=== PATIENT | female | born 1950 | race Caucasian/White ===

== ENCOUNTER 2017-07-08 15:39 | Inpatient (IN) | payer MEDICARE, OTHER ==
[2017-07-08 22:33] LABS: #Eosinphils 0.2 thou/uL (0.0-0.7); #Lymphocytes 0.9 thou/uL (1.20-3.40); #Monocytes 0.8 thou/uL (0.11-0.59); %Basophils 0.5 % (0.0-1.0); %Eosinophils 2.3 % (0.0-10.0); %Lymphocytes 11.4 % (21.0-51.0); %Monocytes 10.3 % (0.0-10.0); %Neutrophils 75.5 % (42.0-75.0); Hemoglobin 11.6 g/dL (12.0-16.0); Mean Corpuscular HGB CONC 33.1 g/dL (32.0-36.0); Mean Corpuscular Hemoglobin 31.6 pg (27.0-31.0); Mean Corpuscular Volume 95.6 fl (81.0-99.0); Mean Platelet Volume 8.2 fL (7.4-10.4); Platelet Count 255 thou/uL (130-400); RBC Distribution Width 12.4 % (11.5-14.5); Red Blood Cell (RBC) Count 3.68 mill/uL (4.20-5.40)
--- NOTE | 2017-07-08 23:04 | HP ---
DATE OF ADMISSION: 07/08/2017 CHIEF COMPLAINT: Abdominal pain. HISTORY OF PRESENT ILLNESS: This is a 67-year-old female who presents with a 2-week history of abdom inal pain that she describes as severe in the left abdomen associated with nausea, anorexia, abdomina l bloating. She had an outpatient CT scan today ordered by Dr. Velarde. They called her back, went to the emergency room based on the findings of the CT scan. CT scan shows findings concerning for perit onitis and there was some concern for a perforated gastric ulcer. The patient notes a history of ser ositis, previously treated at the [facility] with a small bowel resection. She has had multiple abd ominal operations. States she has 19 inches of small intestine that has been removed secondary to th is. She states that she will have inflammation of the small intestine that has always necessitated a small bowel resection. This time, the symptoms have been shorter in length, but more severe, althou gh she feels comfortable now. She sees Dr. Velarde as an outpatient and takes Imuran and Remicade. No other steroids recently. She has been taking some tramadol and occasional ibuprofen for this pain as well as for knee replacement post-surgical pain that she had back in December but not a significant bahman y amount. She does not take a daily antacid. PAST MEDICAL HISTORY: Otherwise, hypertension. PAST SURGICAL HISTORY: As above. MEDICATIONS TAKEN DAILY: Include azathioprine, flecainide, lisinopril, Remicade. ALLERGIES: She denies. SOCIAL HISTORY: No smoking, alcohol, or other drugs. REVIEW OF SYSTEMS: Ten system review of systems otherwise negative unless described above. PHYSICAL EXAMINATION: VITAL SIGNS: Blood pressure 124/83, her pulse is 87, respirations 12. She is afebrile. HEENT: Sclerae are anicteric. Oropharynx is clear. NECK: No lymphadenopathy. CHEST: Clear. HEART: Regular rate and rhythm. ABDOMEN: Soft, diffuse, mildly tender, left-sided tenderness with guarding but no rebound, no perito vlad signs. Well-healed midline incision without hernia. LABORATORY DATA: White cell count is 8, hemoglobin 11, platelet count is 255. Sodium 138, potassium 4.2, creatinine 0.73. Liver function tests normal. A CT scan reveals severe inflammatory change greater curve of the stomach into the posterior lesser s ac and around the tail of the pancreas and there are some small bowel involvement and colon involveme nt in the left upper quadrant. There is no free air. There is some free fluid in the pelvis and agustin ng the right pericolic gutter. ASSESSMENT: 1. History of serositis requiring multiple abdominal operations for similar symptoms and presentatio n. She is not septic or toxic appearing and with normal pulses, normal infection count, and fairly b enign exam given her CT scan findings. 2. Hypertension. PLAN: We will admit to the hospital for broad-spectrum antibiotics, IV fluid resuscitation, IV Fred nix. We have a GI see her in the morning. Further treatment depends on her clinical course. Stacey morrison, if her pain increases or if she becomes unstable, she will go to the operating room.
[2017-07-09] MEDS ORDERED: Sodium Chloride 0.9% 1,000 ML IV SCH (00:46)
[2017-07-09] MEDS ORDERED: Dextrose 50% Abboject 50 ML SYRINGE SLOW IVP PRN (00:46)
[2017-07-09] MEDS ORDERED: hydrALAZINE 20 MG/ML VIAL SLOW IVP PRN (00:46)
[2017-07-09] MEDS ORDERED: Promethazine HCl 25 MG/ML VIAL IM PRN (00:46)
[2017-07-09] MEDS ORDERED: Ondansetron ODT 4 MG TAB PO PRN (00:46)
[2017-07-09] MEDS ORDERED: Morphine 4 MG/ML Carpuject SLOW IVP PRN (00:46)
[2017-07-09] MEDS ORDERED: Dextrose 5% in Water 1,000 ML IV PRN (00:46)
[2017-07-09] MEDS ORDERED: Pantoprazole 40 MG VIAL IVP SCH (01:15)
[2017-07-09] MEDS: D5 1/2 NS w/20 mEq KCL 1,000 ML IV SCH ×4 (01:22→21:00)
[2017-07-09] MEDS: Morphine 4 MG/ML Carpuject IVP PRN ×5 (01:25→18:46)
[2017-07-09] MEDS: Piperacillin/Tazobactam 3.375 GM in Sodium Chloride 0.9% 100 ML IVPB SCH ×4 (01:53→20:59)
[2017-07-09 02:01] VITALS: BMI 25.7
[2017-07-09 02:16] LABS: ALT (SGPT) 14 U/L (8-55); AST (SGOT) 21 U/L (5-34); Albumin 3.2 g/dL (3.4-4.8); Alkaline Phosphatase 81 U/L (40-150); Anion Gap 10 mmol/L (10-20); BUN (Urea Nitrogen) 5 mg/dL (9.8-20.1); Bilirubin, Total 0.7 mg/dL (0.2-1.2); Calc. Creatinine Clearance 98 mL/min (70-130); Calcium 8.8 mg/dL (7.8-10.44); Carbon Dioxide 28 mmol/L (23-31); Chloride 104 mmol/L (98-107); Estimated GFR-MDRD 82; Globulin 2.7 g/dL (2.4-3.5); Glucose 109 mg/dL (80-115); Lipase 11 U/L (8-78); Potassium 3.6 mmol/L (3.5-5.1); Protein, Total 5.9 g/dL (6.0-8.3); Sodium 138 mmol/L (136-145)
[2017-07-09 04:09] LABS: #Eosinphils 0.2 thou/uL (0.0-0.7); #Lymphocytes 0.7 thou/uL (1.20-3.40); #Monocytes 0.7 thou/uL (0.11-0.59); #Neutrophils 4.7 thou/uL (1.40-6.50); %Basophils 0.3 % (0.0-1.0); %Lymphocytes 11.5 % (21.0-51.0); %Monocytes 11.3 % (0.0-10.0); %Neutrophils 73.9 % (42.0-75.0); Hemoglobin 11.1 g/dL (12.0-16.0); Mean Corpuscular HGB CONC 32.5 g/dL (32.0-36.0); Mean Corpuscular Hemoglobin 31.7 pg (27.0-31.0); Mean Corpuscular Volume 97.6 fl (81.0-99.0); Mean Platelet Volume 7.7 fL (7.4-10.4); Platelet Count 221 thou/uL (130-400); RBC Distribution Width 12.4 % (11.5-14.5); Red Blood Cell (RBC) Count 3.52 mill/uL (4.20-5.40); White Blood Cell (WBC) Count 6.4 thou/uL (4.8-10.8)
[2017-07-09 04:26] LABS: Anion Gap 11 mmol/L (10-20); BUN (Urea Nitrogen) 4 mg/dL (9.8-20.1); Calc. Creatinine Clearance 96 mL/min (70-130); Calcium 8.5 mg/dL (7.8-10.44); Carbon Dioxide 23 mmol/L (23-31); Chloride 108 mmol/L (98-107); Estimated GFR-MDRD 81; Glucose 125 mg/dL (80-115); Potassium 3.8 mmol/L (3.5-5.1); Sodium 138 mmol/L (136-145)
[2017-07-09] MEDS: Ondansetron HCl/PF 4 MG/2 ML Vial IVP PRN (11:20)
--- NOTE | 2017-07-09 12:17 | PRG ---
DATE OF SERVICE: 07/09/2017 SUBJECTIVE: Ms. Chen feels about the same today. She still complains of some left-sided abdominal pain, mostly when she moves. No significant nausea or vomiting. She is urinating without difficult y. PHYSICAL EXAMINATION: VITAL SIGNS: Pulse is 68, respirations 16, blood pressure is 115/68. She is afebrile. ABDOMEN: Soft, it is mildly distended left upper quadrant, guarding, no peritoneal signs, no rigid a bdomen. LABORATORY DATA: White cell count is 6, hemoglobin 11, platelet count is 221. Sodium is 138, potass ium 3.8, creatinine 0.72. ASSESSMENT: Acute exacerbation of abdominal serositis. PLAN: Continue supportive care including Zosyn for antibiotics. Discussed with Dr. Arauz. He will see her. She is on long-term Remicade for this. She may need treatment with steroids. If not impro ving clinically, she may need surgery.
[2017-07-09] MEDS ORDERED: Propofol 200 MG/20 ML VIAL ONE (14:27)
[2017-07-09] MEDS ORDERED: Ondansetron HCl/PF 4 MG/2 ML Vial IVP PRN (15:31)
--- NOTE | 2017-07-09 15:53 | OP ---
DATE OF PROCEDURE: 07/09/2017 INDICATION: Left upper quadrant abdominal pain, possible gastric perforation. PROCEDURE PERFORMED: Esophagogastroduodenoscopy (diagnostic). DESCRIPTION OF PROCEDURE: After the risks and benefits of the procedure were explained to the patient including risks of infection, bleeding, perforation, reaction to anesthesia and/or pain. Informed consent was obtained. She was then taken to the endoscopy suite where deep sedation was administered via propofol and anesthesia support. The standard gastroscope was then advanced into the mouth with intubation of the esophagus, stomach and proximal small bowel with the finding of listed below. The patient tolerated the procedure well with no immediate perioperative complications. FINDINGS: Esophagus: Normal appearing mucosa was seen in the proximal, mid and distal esophagus. There was no evidence of esophagitis, erosions, ulcerations, or mass lesions. Both the diaphragmatic pinch and GE junction were well seen at approximately 45 cm past the incisors. Stomach: Normal mucosa was seen in the cardia, fundus, body, antrum and incisura within a J-shaped stomach. There was no evidence of erosions, ulcerations, perforation or mass lesions. No abnormalities were seen on gastric retroflexion. Duodenum: Normal appearing mucosa was seen in the duodenal bulb, as well as the second portion of the duodenum. There was no evidence of erosions, ulcerations, or mass lesions. IMPRESSION: 1. Normal upper endoscopy. 2. No gastric perforation or ulcerations seen during today's examination. RECOMMENDATIONS: 1. Follow with primary inpatient team. 2. Can continue patient on PPI 40 mg daily for acid reflux. 3. We would consider discontinuation of antibiotics given the lack of evidence for gastric perforation. 4. We would highly consider placing the patient on steroids daily for recurrence of serositis contributing to left upper quadrant abdominal pain and findings seen on GI imaging. [facility]
--- NOTE | 2017-07-09 16:56 | CON ---
DATE OF CONSULTATION: 07/09/2017 REASON FOR CONSULTATION: Left upper quadrant abdominal pain, abnormal GI imaging. CONSULTING PHYSICIAN: Dr. Byron Byrd. HISTORY OF PRESENT ILLNESS: The patient is a 67-year-old female with past medical history of hypertension, essential tremor and chronic serositis that presents with a 2-week history of abdominal pain. She states that she was in her usual state of health until approximately 2 weeks ago when she had the progressive worsening of left upper quadrant abdominal pain, characterized as constant, sharp/stabbing type pain, severity 6-7/10, and nonradiating. The pain was worse with movement/physical activity and intermittently with eating; alleviated only with pain medications. The pain medication she has been taking at home included tramadol as well as ibuprofen 600 mg every 1-2 days. However, during this time, she also endorses approximately 2-3 solid bowel movements per day with no difficulty with defecation. With the worsening of her pain, she was actually seen by Dr. Joy, her [employer] yesterday, who ordered routine labs as well as imaging. The imaging was concerning for possible perforated gastric ulcer that prompted her admission to [facility]. While in the hospital , she continues to have left upper quadrant abdominal pain, but has not been exhibiting any additional symptoms including nausea, vomiting, fevers, chills, shortness of breath, odynophagia, dysphagia, dizziness, syncope, or lower extremity edema. Of note, she has a history of chronic serositis that has been present for many years. She was currently seeing Dr. Velarde as an outpatient, taking both azathioprine and Remicade as part of immunosuppressive therapy related to her serositis. While on this regimen, she was under fairly good control, but more recently had been having episodes of increased diarrhea closer to the end of when she would receive her next infusion of Remicade. Also, of note, she was seen at the [facility] for this chronic serositis with the resection of approximately 8 inches of small bowel, which did not correct her symptoms. REVIEW OF SYSTEMS: A 12-category review of systems was obtained with all responsive negative except for the pertinent positives as listed in the HPI. PAST MEDICAL HISTORY: Per HPI. PAST SURGICAL HISTORY: Small-bowel resection x2. FAMILY HISTORY: Colon cancer (multiple aunts and uncles). SOCIAL HISTORY: Quit smoking 2 weeks ago. Drinks approximately 1-2 drinks per month. Denies any illicit drug use. OUTPATIENT MEDICATIONS: Azathioprine, Remicade, lisinopril, and flecainide. ALLERGIES: No known drug allergies. PHYSICAL EXAMINATION: VITAL SIGNS: Temperature 97.7, pulse 61, blood pressure 106/62, respiratory rate 16, and satting 96% on room air. GENERAL: Patient is in no acute distress, although does exhibit some grimacing upon moving in the bed, alert and oriented x4. HEENT: Normocephalic, atraumatic. NECK: Supple. No JVD noted. CARDIOVASCULAR: Regular rate and rhythm with no discernible murmurs, gallops, or rubs. RESPIRATORY: Clear to auscultation bilaterally with no discernible wheezes or rales. ABDOMEN: Soft, normoactive bowel sounds. Nondistended. Increased tenderness to palpation in the periumbilical left upper quadrant and left lower quadrant with guarding, but no rebound tenderness. A well healed midline incision without hernia was also noted. EXTREMITIES: No cyanosis, clubbing, or edema. LABORATORY DATA: CBC with a white blood cell count of 6.4, hemoglobin 11.1, hematocrit 34.3, platelets 221. Chemistry with a sodium of 138, potassium 3.8, chloride 108, CO2 of 23, BUN 4, creatinine 0.72, glucose 125, AST 21, ALT 14, alkaline phosphatase 81, total bilirubin 0.7, lipase 11. IMAGING STUDIES: CT scan obtained yesterday revealed severe inflammatory change along the greater curve of the stomach and into the posterior lesser sac with some small bowel and colon involvement in the left upper quadrant. No evidence of free air; however, there was a large amount of free fluid in the pelvis and along the right paracolic gutter. ASSESSMENT AND PLAN: The patient is a 67-year-old female with past medical history of hypertension, essential tremor, and chronic serositis presenting with left upper quadrant abdominal pain. Left upper quadrant abdominal pain Patient is presenting with worsening abdominal pain over the last 2 weeks, characterized as sharp stabbing pain within the left upper quadrant that is exacerbated by movements and only alleviated with medication administration. Upon seeing her [employer] doctor yesterday, CT scan was obtained showing severe inflammatory change along the greater curvature of the stomach as well as involvement of the small and large bowel, concerning for peptic ulcer or gastric perforation. However, she does not exhibit any elevated white count. She is not tachycardic, hypotensive, nor if there free air present on the CT scan that would lend itself towards a diagnosis of gastric perforation. At this time, the etiology of her left upper quadrant abdominal pain is most likely due to her chronic serositis with diminishing returns from azathioprine and Remicade administration in the recent past as evidenced by increased diarrhea type stools prior to her infusion of Remicade. However, peptic ulcer disease cannot be ruled out at this time and she would benefit from endoscopic evaluation. RECOMMENDATIONS: 1. We will plan for EGD today for intraluminal evaluation for possible peptic ulcer and/or perforation. 2. We would continue PPI 40 mg twice daily for possible peptic ulcer disease. 3. Continue with broad spectrum antibiotics given possibility for infection and perforation. 4. I also agree with the administration of IV fluids, given the likelihood of perforation. 5. If the upper endoscopy is negative, we would strongly consider diagnosis of serositis and administration of steroids as part of immunosuppressant therapy to reachieve remission. 6. Pain control per primary team. MTDD
[2017-07-09] MEDS: Pantoprazole 40 MG VIAL IVP SCH (21:00)
[2017-07-10] MEDS: Piperacillin/Tazobactam 3.375 GM in Sodium Chloride 0.9% 100 ML IVPB SCH ×4 (02:47→20:42)
[2017-07-10] MEDS: Morphine 4 MG/ML Carpuject IVP PRN ×5 (03:02→20:42)
[2017-07-10 04:07] LABS: #Eosinphils 0.3 thou/uL (0.0-0.7); #Lymphocytes 0.7 thou/uL (1.20-3.40); #Monocytes 0.6 thou/uL (0.11-0.59); #Neutrophils 3.9 thou/uL (1.40-6.50); %Basophils 0.6 % (0.0-1.0); %Eosinophils 5.2 % (0.0-10.0); %Lymphocytes 12.8 % (21.0-51.0); %Neutrophils 70.4 % (42.0-75.0); Hemoglobin 10.4 g/dL (12.0-16.0); Mean Corpuscular HGB CONC 32.3 g/dL (32.0-36.0); Mean Corpuscular Hemoglobin 31.5 pg (27.0-31.0); Mean Corpuscular Volume 97.5 fl (81.0-99.0); Mean Platelet Volume 7.9 fL (7.4-10.4); Platelet Count 246 thou/uL (130-400); RBC Distribution Width 12.6 % (11.5-14.5); Red Blood Cell (RBC) Count 3.31 mill/uL (4.20-5.40); White Blood Cell (WBC) Count 5.5 thou/uL (4.8-10.8)
[2017-07-10 04:23] LABS: Anion Gap 10 mmol/L (10-20); BUN (Urea Nitrogen) Less than 4 mg/dL (9.8-20.1); Calc. Creatinine Clearance 90 mL/min (70-130); Calcium 8.3 mg/dL (7.8-10.44); Carbon Dioxide 26 mmol/L (23-31); Chloride 108 mmol/L (98-107); Estimated GFR-MDRD 75; Glucose 105 mg/dL (80-115); Potassium 4.1 mmol/L (3.5-5.1); Sodium 140 mmol/L (136-145)
[2017-07-10] MEDS: D5 1/2 NS w/20 mEq KCL 1,000 ML IV SCH ×2 (07:12→18:41)
[2017-07-10] MEDS ORDERED: predniSONE 20 MG TAB PO SCH (08:00)
[2017-07-10] MEDS ORDERED: Prevnar 13-Val Conj/PF 0.5 ML SYRINGE IM ONE (09:00)
--- NOTE | 2017-07-10 09:48 | PDOC.GSPN ---
Surgery Progress Note: Subj - Subjective Narrative: Still complaining of pain. No nausea with clear liquids. Pain mostly left upper quadrant Surgery Progress Note: Obj - Vital signs Vital signs: Vital Signs - Most Recent Temp Pulse Resp BP Pulse Ox 98.2 F 65 16 125/71 97 07/10/17 07:50 07/10/17 07:50 07/10/17 07:50 07/10/17 07:50 07/10/17 07:50 - Physical Exam General: no distress Respiratory: clear to auscultation Abdomen: soft, tender (in the left upper quadrant) Surgery Progress Note: Results - Labs Result Diagrams: 07/10/17 03:13 07/10/17 03:13 Lab results: Laboratory Results WBC 5.5 thou/uL (4.8-10.8) 07/10/17 03:13 RBC 3.31 mill/uL (4.20-5.40) L 07/10/17 03:13 Hgb 10.4 g/dL (12.0-16.0) L 07/10/17 03:13 Hct 32.3 % (36.0-47.0) L 07/10/17 03:13 MCV 97.5 fl (81.0-99.0) 07/10/17 03:13 MCH 31.5 pg (27.0-31.0) H 07/10/17 03:13 MCHC 32.3 g/dL (32.0-36.0) 07/10/17 03:13 RDW 12.6 % (11.5-14.5) 07/10/17 03:13 Plt Count 246 thou/uL (130-400) 07/10/17 03:13 MPV 7.9 fL (7.4-10.4) 07/10/17 03:13 Neutrophils % 70.4 % (42.0-75.0) 07/10/17 03:13 Lymphocytes % 12.8 % (21.0-51.0) L 07/10/17 03:13 Monocytes % 11.0 % (0.0-10.0) H 07/10/17 03:13 Eosinophils % 5.2 % (0.0-10.0) 07/10/17 03:13 Basophils % 0.6 % (0.0-1.0) 07/10/17 03:13 Neutrophils # 3.9 thou/uL (1.40-6.50) 07/10/17 03:13 Lymphocytes # 0.7 thou/uL (1.20-3.40) L 07/10/17 03:13 Monocytes # 0.6 thou/uL (0.11-0.59) H 07/10/17 03:13 Eosinophils # 0.3 thou/uL (0.0-0.7) 07/10/17 03:13 Basophils # 0.0 thou/uL (0.0-0.2) 07/10/17 03:13 Sodium 140 mmol/L (136-145) 07/10/17 03:13 Potassium 4.1 mmol/L (3.5-5.1) 07/10/17 03:13 Chloride 108 mmol/L (98-107) H 07/10/17 03:13 Carbon Dioxide 26 mmol/L (23-31) 07/10/17 03:13 Anion Gap 10 mmol/L (10-20) 07/10/17 03:13 BUN Less than 4 mg/dL (9.8-20.1) L 07/10/17 03:13 Creatinine 0.77 mg/dL (0.6-1.1) 07/10/17 03:13 Estimated GFR (MDRD) 75 07/10/17 03:13 Glucose 105 mg/dL (80-115) 07/10/17 03:13 Calcium 8.3 mg/dL (7.8-10.44) 07/10/17 03:13 Total Bilirubin 0.7 mg/dL (0.2-1.2) 07/09/17 01:22 AST 21 U/L (5-34) 07/09/17 01:22 ALT 14 U/L (8-55) 07/09/17 01:22 Alkaline Phosphatase 81 U/L (40-150) 07/09/17 01:22 Serum Total Protein 5.9 g/dL (6.0-8.3) L 07/09/17 01:22 Albumin 3.2 g/dL (3.4-4.8) L 07/09/17 01:22 Globulin 2.7 g/dL (2.4-3.5) 07/09/17 01:22 Albumin/Globulin Ratio 1.2 g/dL (1.2-2.2) 07/09/17 01:22 Lipase 11 U/L (8-78) 07/09/17 01:22 Blood Type O POSITIVE 07/08/17 22:25 Antibody Screen NEGATIVE 07/08/17 22:25 Surgery Progress Note: A/P - Problem (1) Serositis Current Visit: Yes Code(s): K65.8 - OTHER PERITONITIS Status: Acute Assessment and Plan: Exacerbation: Try IV steroids. She has already had 19 inches of small bowel resection by her report. If not improving on IV steroids next step would be TPN and bowel rest
[2017-07-10] MEDS: Pantoprazole 40 MG VIAL IVP SCH (20:40)
--- NOTE | 2017-07-10 21:47 | PRG ---
DATE OF SERVICE: 07/10/2017 SUBJECTIVE: The patient continues to have increased left upper quadrant abdominal pain that is now s tarting to radiate into the periumbilical region. This pain is unchanged in character or severity an d she is frustrated with her current clinical condition and chronicity of these flares of abdominal p ain. Currently, she denies any fevers, chills, shortness of breath, GI bleeding, diarrhea or constip ation. OBJECTIVE: VITAL SIGNS: Temperature 98.7, pulse 72, blood pressure 142/70, respiratory rate 20, satting 95% on room air. GENERAL: The patient in relatively no distress. Alert and oriented x4. CARDIOVASCULAR: Regular rate and rhythm with no discernible murmurs, gallops, or rubs. RESPIRATORY: Clear to auscultation bilaterally with no discernible wheezes or rales. ABDOMEN: Normoactive bowel sounds, soft, nondistended. Increased tenderness to palpation in the per iumbilical and left upper quadrant with guarding but no rebound tenderness. EXTREMITIES: No cyanosis, clubbing, or edema. LABORATORY DATA: CBC with a white blood cell count of 5.5, hemoglobin 10.4, hematocrit 32.3, platele ts 246. Chemistry with a sodium of 140, potassium 4.1, chloride 108, CO2 of 26, BUN less than 4, cre atinine 0.77. IMAGING STUDIES: No current GI imaging is available for review. ASSESSMENT AND PLAN: The patient is a 67-year-old female with past medical history of hypertension, essential tremor, and chronic serositis presenting with left upper quadrant abdominal pain and imagin g consistent with serositis. Serositis. The patient is presenting with worsening abdominal pain over the last 2 weeks that was ch aracterized as a sharp, stabbing pain within the left upper quadrant, exacerbated only by movement an d alleviated with pain medications. CT scan obtained as an outpatient showed severe inflammatory erin nge along the greater curvature of the stomach as well as the involvement of the large and small venessa l concerning for peptic ulcer or gastric perforation. She subsequently underwent EGD evaluation on 07/09/2017 with normal findings. At this time, the etiology of her left upper quadrant abdominal pain is most likely due to her chronic serositis with flaring of her symptoms through the administration of both azathioprine 50 mg daily and Remicade. Given the nature of her remission state in the past w ith immunosuppression, IV steroids are indicated at this time. RECOMMENDATIONS: 1. Would continue PPI 40 mg twice daily. 2. Would continue broad-spectrum antibiotics given the possibility of infection with serositis. 3. Agree with the administration of IV fluids, however, would decrease in light of advancing the pat ient's diet. 4. Continue with IV steroid administration for immunosuppression therapy to achieve remission of her chronic serositis. 5. Pain control per primary team. We will continue to follow. Please call with any questions.
[2017-07-11] MEDS: Piperacillin/Tazobactam 3.375 GM in Sodium Chloride 0.9% 100 ML IVPB SCH ×2 (01:17→08:21)
[2017-07-11] MEDS: D5 1/2 NS w/20 mEq KCL 1,000 ML IV SCH (04:33)
[2017-07-11] MEDS: Ondansetron HCl/PF 4 MG/2 ML Vial IVP PRN (05:21)
[2017-07-11] MEDS ORDERED: D5 1/2 NS w/20 mEq KCL 1,000 ML IV SCH (08:51)
--- NOTE | 2017-07-11 08:52 | PDOC.GSPN ---
Surgery Progress Note: Subj - Subjective Patient reports: tolerating liquids well Narrative: Feels better Surgery Progress Note: Obj - Vital signs Vital signs: Vital Signs - Most Recent Temp Pulse Resp BP Pulse Ox 97.5 F L 50 L 18 146/70 H 97 07/11/17 08:00 07/11/17 08:00 07/11/17 08:00 07/11/17 08:00 07/11/17 08:00 - Physical Exam General: no distress Abdomen: soft, tender (but much improved) Surgery Progress Note: Results - Labs Result Diagrams: 07/10/17 03:13 07/10/17 03:13 Lab results: Laboratory Results WBC 5.5 thou/uL (4.8-10.8) 07/10/17 03:13 RBC 3.31 mill/uL (4.20-5.40) L 07/10/17 03:13 Hgb 10.4 g/dL (12.0-16.0) L 07/10/17 03:13 Hct 32.3 % (36.0-47.0) L 07/10/17 03:13 MCV 97.5 fl (81.0-99.0) 07/10/17 03:13 MCH 31.5 pg (27.0-31.0) H 07/10/17 03:13 MCHC 32.3 g/dL (32.0-36.0) 07/10/17 03:13 RDW 12.6 % (11.5-14.5) 07/10/17 03:13 Plt Count 246 thou/uL (130-400) 07/10/17 03:13 MPV 7.9 fL (7.4-10.4) 07/10/17 03:13 Neutrophils % 70.4 % (42.0-75.0) 07/10/17 03:13 Lymphocytes % 12.8 % (21.0-51.0) L 07/10/17 03:13 Monocytes % 11.0 % (0.0-10.0) H 07/10/17 03:13 Eosinophils % 5.2 % (0.0-10.0) 07/10/17 03:13 Basophils % 0.6 % (0.0-1.0) 07/10/17 03:13 Neutrophils # 3.9 thou/uL (1.40-6.50) 07/10/17 03:13 Lymphocytes # 0.7 thou/uL (1.20-3.40) L 07/10/17 03:13 Monocytes # 0.6 thou/uL (0.11-0.59) H 07/10/17 03:13 Eosinophils # 0.3 thou/uL (0.0-0.7) 07/10/17 03:13 Basophils # 0.0 thou/uL (0.0-0.2) 07/10/17 03:13 Sodium 140 mmol/L (136-145) 07/10/17 03:13 Potassium 4.1 mmol/L (3.5-5.1) 07/10/17 03:13 Chloride 108 mmol/L (98-107) H 07/10/17 03:13 Carbon Dioxide 26 mmol/L (23-31) 07/10/17 03:13 Anion Gap 10 mmol/L (10-20) 07/10/17 03:13 BUN Less than 4 mg/dL (9.8-20.1) L 07/10/17 03:13 Creatinine 0.77 mg/dL (0.6-1.1) 07/10/17 03:13 Estimated GFR (MDRD) 75 07/10/17 03:13 Glucose 105 mg/dL (80-115) 07/10/17 03:13 Calcium 8.3 mg/dL (7.8-10.44) 07/10/17 03:13 Total Bilirubin 0.7 mg/dL (0.2-1.2) 07/09/17 01:22 AST 21 U/L (5-34) 07/09/17 01:22 ALT 14 U/L (8-55) 07/09/17 01:22 Alkaline Phosphatase 81 U/L (40-150) 07/09/17 01:22 Serum Total Protein 5.9 g/dL (6.0-8.3) L 07/09/17 01:22 Albumin 3.2 g/dL (3.4-4.8) L 07/09/17 01:22 Globulin 2.7 g/dL (2.4-3.5) 07/09/17 01:22 Albumin/Globulin Ratio 1.2 g/dL (1.2-2.2) 07/09/17 01:22 Lipase 11 U/L (8-78) 07/09/17 01:22 Blood Type O POSITIVE 07/08/17 22:25 Antibody Screen NEGATIVE 07/08/17 22:25 Surgery Progress Note: A/P - Problem (1) Serositis Current Visit: Yes Code(s): K65.8 - OTHER PERITONITIS Status: Acute Assessment and Plan: Pain improved. Advance to full liquids. continue steroids
[2017-07-11] MEDS ORDERED: INFLIXIMAB IVPB SCH (12:00)
[2017-07-11] MEDS ORDERED: SODIUM CHLORIDE 0.9% IVPB SCH (12:00)
--- NOTE | 2017-07-11 12:19 | PRG ---
DATE OF SERVICE: 07/11/2017 SUBJECTIVE: Overnight, the patient states that her abdominal pain has improved and is now minimally tender in the left upper quadrant. Currently, she denies any fevers, chills, shortness of breath, GI bleeding, diarrhea or constipation. OBJECTIVE: VITAL SIGNS: Temperature 97.5, pulse 50, blood pressure 146/70, respiratory rate 18, satting 97% on room air. GENERAL: The patient sitting in a chair in no distress. Alert and oriented x4. ABDOMEN: Normoactive bowel sounds, soft, nondistended. Mild tenderness to palpation in the periumbilical left upper quadrant. LABORATORY DATA: No studies available for review. IMAGING STUDIES: No current GI imaging available for review. ASSESSMENT AND PLAN: The patient is a 67-year-old female with past medical history of hypertension, essential tremor, and chronic serositis presenting with left upper quadrant abdominal pain and imaging consistent with serositis. Serositis. The patient initially presented with worsening abdominal pain over the last 2 weeks. It was characterized as sharp, stabbing pain within the left upper quadrant, exacerbated only by movement and alleviated with pain medications. CT scan showed severe inflammation along the greater curvature of the stomach as well as some involvement of the large and small bowel concerning for gastric ulcer perforation. However, she subsequently underwent EGD on 07/09 with no evidence of gastric perforation. At this time, she does not display any evidence of active infective process going on. The most likely etiology for her imaging and pain symptoms is flaring of her chronic serositis. She has been receiving azathioprine 50 mg daily and Remicade 10 mg/kg as an outpatient with a fair amount of remission over the last few year and half. Given the response to immunosuppressive therapy in the past, IV steroids were started during this inpatient stay with improvement of her abdominal pain today. Upon questioning her, she said that she would also have increased episodes of diarrhea near the next infusion of her Remicade concerning for inadequate titers of the medication prior to her next infusion and may benefit from an increased frequency of her infusions. RECOMMENDATIONS: 1. Would continue PPI, but can decrease to 40 mg once daily. 2. We will continue broad spectrum antibiotics given the possibility of infection with serositis. 3. Agree with the administration of IV fluids, but would decrease in light of advancing the patient's diet given that she could be advanced to a full liquid diet and assess for tolerance. 4. Would continue IV steroid administration to achieve remission of her chronic serositis. 5. Continue azathioprine 50 mg daily, but we will start patient on a Remicade infusion today at 10 mg/kg and pain control per primary team. We will continue to follow. Please call with any questions. MTDD
[2017-07-11] MEDS ORDERED: Acetaminophen 325 MG TAB PO PRN (19:36)
[2017-07-11] MEDS ORDERED: HYDROcodone/Acetaminophen 10/325 mg Tablet PO PRN ×2 (19:36)
[2017-07-11] MEDS: Pantoprazole 40 MG VIAL IVP SCH (21:39)
[2017-07-12 08:34] VITALS: TEMP 97.8
--- NOTE | 2017-07-12 10:32 | DIS ---
DATE OF ADMISSION: 07/08/2017 DATE OF DISCHARGE: 07/12/2017 ADMITTING DIAGNOSIS: Acute exacerbation of abdominal serositis (chronic autoimmune disease). DISCHARGE DIAGNOSIS: Acute exacerbation of abdominal serositis (chronic autoimmune disease). PROCEDURES: EGD by Dr. Arauz within normal limits. CONDITION AT DISCHARGE: Improved. STAFF: Dr. Byron Byrd. HOSPITAL COURSE: The patient was admitted with severe abdominal pain with a history of serositis, se en by Gastroenterology and started on steroids. She also had Remicade infusion. She had marked impr ovement in her abdominal pain. On the day of discharge, she is doing well, she is tolerating diet. Her pain is minimal. She is discharged home on steroid taper. She will follow up with Dr. Velared in [facility] in a week or two.
[2017-07-12 12:54] VITALS: BP 151/73
--- NOTE | 2017-07-12 13:47 | PRG ---
DATE OF SERVICE: 07/12/2017 SUBJECTIVE: Overnight, patient had significant improvement in her abdominal pain and was able to ambulate, bend over and perform twisting movements with minimal increase in her pain. She does continue to have minimal left lower quadrant abdominal pain, but as before, improved from previous. Currently, she denies any fevers, chills, shortness of breath, GI bleeding, diarrhea or constipation. ASSESSMENT AND PLAN: The patient is a 67-year-old female with past medical history of hypertension, essential tremor, and chronic serositis presenting with left upper quadrant abdominal pain and imaging consistent with exacerbation of her serositis. Serositis. The patient initially presented with worsening abdominal pain over the last [address] scan showing severe inflammation along the greater curvature of the stomach concerning for a gastric ulcer perforation. Esophagogastroduodenoscopy performed on 07/09/2017 did not show any evidence of gastric perforation at which point she was placed on IV steroids and over the course of the last few days has had significant improvement in her abdominal pain. Currently receiving azathioprine 50 mg daily and was receiving Remicade 10 mg/kg as an outpatient. Upon interviewing her, she said that she had worsening of her symptoms shortly before the last few infusions of her Remicade , so the frequency of her Remicade was increased with the last dose given on at 10 mg/kg. Currently doing well with significant improvement in her pain since admission and plan for discharge later today. RECOMMENDATIONS: 1. Would discharge the patient on 40 mg prednisone daily and maintained at that dose until seen by the GI Clinic for further increase or decrease. 2. Advance diet as tolerated. 3. Discharge on azathioprine 50 mg daily with plan to repeat her Remicade infusion in approximately 6 weeks. 4. Agree with discharge. We will sign off. Please call with any questions. TAMEKA
== END 2017-07-12 14:39 | disposition home or self-care (01) | DRG 373 ==
LOC: ERS 15:39 → SURG A 22:39
PROVIDERS: ADMIT Surgery; ATTEND Surgery
PROC: 0DJ08ZZ Inspection of Upper Intestinal Tract, Via Natural or Artificial Opening Endoscopic (ICD-10-PCS; principal; 2017-07-09)
DX: K65.8 Other peritonitis (principal); F17.210 Nicotine dependence, cigarettes, uncomplicated; G25.0 Essential tremor; I10 Essential (primary) hypertension; Z90.49 Acquired absence of other specified parts of digestive tract; Z96.659 Presence of unspecified artificial knee joint; Z79.899 Other long term (current) drug therapy; Z88.5 Allergy status to narcotic agent
CPT/HCPCS: 36415; 74178; 80048; 80053; 83690; 85025; 86850; 86900; 86901; 93005; A4216; C9113; J1745; J2270; J2405; J2543; J2704; J2920; J7050; J7506

== ENCOUNTER 2017-07-26 14:24 | Outpatient (CLI) | payer MEDICARE, OTHER | END 2017-07-26 14:25 | disposition home or self-care (01) | LOC: BICRAD 14:24 | PROVIDERS: ATTEND Internal Medicine Gastroenterology | DX: K65.8 Other peritonitis (principal); J98.4 Other disorders of lung | CPT/HCPCS: 71046 ==

== ENCOUNTER 2017-08-17 12:27 | Outpatient (CLI) | payer MEDICARE, OTHER ==
[~2017-08-17 12:27] MED LIST: Iopamidol 370 76% 100 ML VIAL ONE
== END 2017-08-17 12:28 | disposition home or self-care (01) ==
LOC: BICCT 12:27
PROVIDERS: ATTEND Internal Medicine Gastroenterology
DX: R10.30 Lower abdominal pain, unspecified (principal); K65.8 Other peritonitis; I70.90 Unspecified atherosclerosis
CPT/HCPCS: 74177

== ENCOUNTER 2017-09-19 15:33 | Outpatient (CLI) | payer MEDICARE, OTHER ==
[2017-09-19 16:48] LABS: #Eosinphils 0.1 thou/uL (0.0-0.7); #Lymphocytes 0.7 thou/uL (1.20-3.40); #Monocytes 0.3 thou/uL (0.11-0.59); #Neutrophils 6.5 thou/uL (1.40-6.50); %Basophils 0.5 % (0.0-1.0); %Eosinophils 0.9 % (0.0-10.0); %Lymphocytes 9.8 % (21.0-51.0); %Monocytes 3.7 % (0.0-10.0); Hemoglobin 11.2 g/dL (12.0-16.0); Mean Corpuscular HGB CONC 32.1 g/dL (32.0-36.0); Mean Corpuscular Hemoglobin 30.1 pg (27.0-31.0); Mean Corpuscular Volume 93.9 fl (81.0-99.0); Mean Platelet Volume 6.8 fL (7.4-10.4); Platelet Count 476 thou/uL (130-400); RBC Distribution Width 14.7 % (11.5-14.5); Red Blood Cell (RBC) Count 3.71 mill/uL (4.20-5.40); White Blood Cell (WBC) Count 7.6 thou/uL (4.8-10.8)
[2017-09-19 17:10] LABS: Anion Gap 11 mmol/L (10-20); BUN (Urea Nitrogen) 16 mg/dL (9.8-20.1); Calc. Creatinine Clearance 0 mL/min (70-130); Calcium 9.5 mg/dL (7.8-10.44); Carbon Dioxide 26 mmol/L (23-31); Chloride 108 mmol/L (98-107); Estimated GFR-MDRD 67; Glucose 111 mg/dL (80-115); Potassium 3.9 mmol/L (3.5-5.1); Sodium 141 mmol/L (136-145)
--- NOTE | 2017-10-05 22:34 | EKG ---
Test Reason : Blood Pressure : / mmHG Vent. Rate : 053 BPM Atrial Rate : 053 BPM P-R Int : 116 ms QRS Dur : 090 ms QT Int : 446 ms P-R-T Axes : 049 006 042 degrees QTc Int : 418 ms Poor data quality, interpretation may be adversely affected Sinus bradycardia Otherwise normal ECG When compared with ECG of 08-JUL-2017 21:32, No significant change was found Confirmed by Yolis FOFANA ([id number]) on 10/05/2017 10:33:42 PM Referred By: RHIANNON Confirmed By:Yolis FOFANA
== END 2017-09-19 15:34 | disposition home or self-care (01) ==
LOC: LABBT 15:33
PROVIDERS: ATTEND Specialist
DX: Z01.818 Encounter for other preprocedural examination (principal); R10.9 Unspecified abdominal pain
CPT/HCPCS: 80048; 85025; 93005; 93010

== ENCOUNTER 2017-09-21 11:46 | Day surgery (SDC) | payer MEDICARE, OTHER ==
[2017-09-19 15:48] VITALS: BMI 24.8
--- NOTE | 2017-09-20 12:46 | HP ---
HISTORY OF PRESENT ILLNESS: Jaqueline Chen is a 67-year-old female with serositis. She is followed by Dr. Velarde. She has been treated with Remicade and antiinflammatory bowel treatments for several year s with success. I initially saw her in 2010 were radiologically, she had CAT scan changes suggesting transverse colon, thickened wall, underwent laparoscopy and mobilization of splenic flexure, distal transverse colon, descending colon, and resection of her distal transverse colon, splenic flexure wit h primary anastomosis. Pathology demonstrating serositis. [facility] sigmoid resection with primary anastomosis. Apparently, she had a history of difficult colonoscopic access to the more proximal colon. The patient presented apparently in 06/2017 and was seen by Dr. Byrd and the left upper quadrant with CAT scan demonstrating thickened greater curvat ure of the stomach. Gastric body and antrum with reactive edema of the adjacent transverse colon and small bowel with some moderate volume free fluid in the pelvis. The patient was seen by Dr. Arauz, Gastroenterology and upper endoscopy was normal and she was treated on steroids and discharged home. Of note, as that I saw her on 05/2013 for an incarcerated incisional umbilical hernia and she underw ent laparoscopy. Laparoscopy revealed incarcerated incisional hernia. The patient has some inflamma tory adhesions in the pelvis at the rectosigmoid junction just beyond the uterus. There is some infl ammatory exudate in the pelvis, but no purulence, the area was irrigated. Irrigant evacuated. It wa s felt that she did not need a drain placement. Certainly did not need resection and the incisional hernia is closed without mesh. During that encounter, Dr. Velarde performed a colonoscopy under the [facility] e anesthesia. Finding nonspecific mucosal erythema in the sigmoid area without any inflammatory stacy ges, it was normal otherwise. I have been called by Dr. Velarde to consider laparoscopy due the patient's complaint of lower abdominal pain in the past months. The etiology of this is uncertain. I have personally spoken to Dr. Velarde r egarding benefits of repeating her colonoscopy. We did not think that is worthwhile. PAST MEDICAL HISTORY: Serositis, history of transverse colon resection, history of sigmoid colon res ection performed by Jeffrey Mathews at [facility] in 2010 and 2014, arthritis, cataracts , hypertension, lumbar osteoporosis, colonoscopy in 2012 and 2010. PAST SURGICAL HISTORY: Colon resection in 2010, distal transverse colon and stapled anastomosis, lap aroscopic converted to an open procedure due to surrounding inflamed tissues in 2012, umbilical herni a repair without mesh after laparoscopy revealed inflammatory changes around the rectosigmoid in 2014 , sigmoid resection at [facility] for serositis/possible diverticulitis, knee surgery in 1962 and 14 10, right shoulder surgery in 2006, CAT scan 08/17/2017 at [facility] normal. No evidence of in flammation. TOBACCO: None. ALCOHOL: None. ALLERGIES: CODEINE. PHYSICAL EXAMINATION: VITAL SIGNS: Weight 175 pounds, 5 foot 10 inches, 136/68, 68, 98.4 degrees. HEAD, EARS, EYES, NOSE AND THROAT: Unremarkable. LUNGS: Clear to auscultation. CARDIAC: Regular rate and rhythm without murmur or gallop. ABDOMEN: Soft. Mild tenderness in left lower quadrant. EXTREMITIES: Unremarkable. No ankle edema, no venous stasis changes. NEUROLOGIC: Neurologically intact. ASSESSMENT AND PLAN: History of serositis. She initially presented with left upper quadrant pain. At that time in 2010, she had a CAT scan demonstrating inflammatory changes of the transverse colon a nd she underwent exploration with transverse colon resection. They reveal diagnosis serositis. In , I performed umbilical hernia repair after laparoscopic evaluation revealed some purulent changes , inflammatory changes in the rectosigmoid. Colonoscopy at that time revealed normal colon except so me mild mucosal erythema. She subsequently went to [facility] in 2014 for pain and underwent sigmoi d colon resection. She now has a repeat CAT scan last month at [facility] reveals no inflammato ry changes, but she has persistent left lower quadrant pain. She has mild tenderness, voluntary guar ding. I have discussed with Dr. Velarde utility of repeating her colonoscopy. He does not think it is necessary and I agree. We would at this point, plan diagnostic laparoscopy. She will undergo bowel prep the day prior. She understands possibilities of a negative exam. Her pain is bothersome enough that she desires intervention if abnormalities were found. Possible open procedure was discussed. Possibility of prohibitive adhesions discussed.
[2017-09-21] MEDS ORDERED: PROPOFOL 200 MG/20 ML VIAL ONE (13:14)
[2017-09-21] MEDS ORDERED: Lidocaine 1% PF 5 ML VIAL ONE (13:14)
[2017-09-21] MEDS ORDERED: Ondansetron HCl/PF 4 MG/2 ML Vial ONE (13:14)
[2017-09-21] MEDS ORDERED: Dexamethasone 20 MG/5 ML VIAL ONE (13:14)
[2017-09-21] MEDS ORDERED: Glycopyrrolate 0.2 MG/ML 5 ML SYRINGE ONE (13:14)
[2017-09-21] MEDS ORDERED: Ketorolac Tromethamine 30 MG/ML VIAL ONE (13:45)
[2017-09-21] MEDS ORDERED: cefOXitin 2 GM, Syringe 1 ML in Sterile Water 10 ML SLOW IVP SCH (14:00)
[2017-09-21] MEDS ORDERED: Bupivacaine/Epinephrine 0.25% 30 ML VIAL ONE ×2 (14:31→16:04)
[2017-09-21] MEDS ORDERED: Midazolam HCl 2 mg/2 ml Vial ONE (15:27)
[2017-09-21] MEDS ORDERED: Fentanyl 250 MCG/5 ML VIAL ONE (15:27)
[2017-09-21] MEDS ORDERED: Meperidine HCl/PF 25 MG/ML VIAL ONE (17:01)
[2017-09-21] MEDS ORDERED: Ondansetron HCl/PF 4 MG/2 ML Vial IVP PRN (17:31)
[2017-09-21] MEDS ORDERED: Promethazine HCl 25 MG/ML VIAL IM/IV PRN (17:31)
[2017-09-21] MEDS ORDERED: Non-Formulary Medication 1 EACH PO PRN (17:31)
[2017-09-21] MEDS ORDERED: Meperidine HCl/PF 25 MG/ML VIAL IV PRN (17:31)
--- NOTE | 2017-09-21 20:18 | OP ---
DATE OF PROCEDURE: 09/21/2017 PREOPERATIVE DIAGNOSES: History of serositis, history of distal transverse colon resection, history of sigmoid colon resection and previous diagnosed laparoscopy with diagnosis of serositis, now with c hronic left lower quadrant, left mid abdominal pain, somewhat migrating. PROCEDURES PERFORMED: Diagnostic laparoscopy, laparoscopic adhesiolysis of serositis changes, small bowel, left abdomen/left upper quadrant. SURGEON: Dr. Jeffrey Mathews. ANESTHESIA: General. Local 0.5% Marcaine with epinephrine 30 mL. DESCRIPTION OF PROCEDURE: The patient was taken to the operating room where under general anesthesia , a Triana catheter was placed at the beginning of the procedure, removed at the end. Abdomen was pre pared with chloraprep and draped in routine fashion. Local anesthetic infiltrated into the skin and subcutaneous tissue about all port sites. Bilateral subcostal incision made and pneumoperitoneum to 15 mmHg obtained with the Veress needle, replacing it with a 5 port, video laparoscope inserted. Abd ominal cavity was essentially free of adhesions. There were no visceral or hormonal adhesions to the abdominal wall. A left lateral subcostal incision made and a 5 port placed. Left mid abdominal lat eral incision made and a 5 port placed. Left lower quadrant incision made and a 5 port placed under laparoscopic visualization. Laparoscope moved to the left ports. Evaluation revealed normal left co teddy, distal colon, normal uterus, tubes, and ovaries for age. Normal transverse and ascending colon. Liver appeared to be normal. Small bowel was identified at the cecum and appendix noted to be long and normal. Terminal ileum was normal as it was traced back to the ligament of Treitz and it was es sentially all normal except for in the left abdomen, there were some serositis type filmy adhesions o f small bowel that did not appear obstructed. These were taken down loosely as they would just pull apart consistent with her serositis history. Small bowel was otherwise normal. There was no tissue to really biopsy. I then ran the bowel from the ligament of Treitz to the cecum and was noted to be normal. The patient tolerated the procedure well. Irrigant and pneumoperitoneum evacuated. All ins truments removed and all skin incisions approximated with interrupted subdermal 4-0 Monocryl and Derm aGlue applied.
== END 2017-09-21 19:00 | disposition home or self-care (01) ==
LOC: SDC 11:46
PROVIDERS: ATTEND Specialist
PROC: 0DN84ZZ Release Small Intestine, Percutaneous Endoscopic Approach (ICD-10-PCS; principal; 2017-09-21)
DX: K65.8 Other peritonitis (principal); K66.0 Peritoneal adhesions (postprocedural) (postinfection); Z88.5 Allergy status to narcotic agent; M81.0 Age-related osteoporosis without current pathological fracture; M19.90 Unspecified osteoarthritis, unspecified site; Z90.49 Acquired absence of other specified parts of digestive tract; Z87.891 Personal history of nicotine dependence
CPT/HCPCS: 96374; A4216; J0131; J0694; J1100; J1885; J2001; J2175; J2250; J2405; J2704; J3010

== ENCOUNTER 2017-12-27 16:09 | Outpatient (CLI) | payer MEDICARE, OTHER | END 2017-12-27 16:10 | disposition home or self-care (01) | LOC: BICMAMMO 16:09 | PROVIDERS: ATTEND Obstetrics & Gynecology | DX: Z12.31 Encounter for screening mammogram for malignant neoplasm of breast (principal) | CPT/HCPCS: 77063; 77067 ==

== ENCOUNTER 2018-09-23 00:55 | Emergency (ER) | payer MEDICARE, OTHER ==
[2018-09-23 02:54] LABS: #Basophils 0.1 thou/uL (0.0-0.2); #Eosinphils 0.2 thou/uL (0.0-0.7); #Lymphocytes 1.3 thou/uL (1.20-3.40); #Monocytes 0.7 thou/uL (0.11-0.59); %Basophils 0.9 % (0.0-1.0); %Eosinophils 2.1 % (0.0-10.0); %Lymphocytes 17.5 % (21.0-51.0); %Monocytes 9.6 % (0.0-10.0); %Neutrophils 69.8 % (42.0-75.0); Hemoglobin 13.5 g/dL (12.0-16.0); Mean Corpuscular HGB CONC 33.2 g/dL (32.0-36.0); Mean Corpuscular Hemoglobin 30.9 pg (27.0-31.0); Mean Corpuscular Volume 93.1 fL (78.0-98.0); Mean Platelet Volume 8.6 fL (7.4-10.4); Platelet Count 241 thou/uL (130-400); RBC Distribution Width 12.9 % (11.5-14.5); Red Blood Cell (RBC) Count 4.37 mill/uL (4.20-5.40); White Blood Cell (WBC) Count 7.2 thou/uL (4.8-10.8)
[2018-09-23 03:14] LABS: ALT (SGPT) 14 U/L (8-55); AST (SGOT) 23 U/L (5-34); Albumin 4.3 g/dL (3.4-4.8); Alkaline Phosphatase 92 U/L (40-150); Anion Gap 14 mmol/L (10-20); BUN (Urea Nitrogen) 15 mg/dL (9.8-20.1); Bilirubin, Total 0.6 mg/dL (0.2-1.2); Calc. Creatinine Clearance 0 mL/min (70-130); Calcium 9.4 mg/dL (7.8-10.44); Carbon Dioxide 24 mmol/L (23-31); Chloride 112 mmol/L (98-107); Estimated GFR-MDRD 75; Globulin 2.9 g/dL (2.4-3.5); Glucose 88 mg/dL (80-115); Potassium 4.3 mmol/L (3.5-5.1); Protein, Total 7.2 g/dL (6.0-8.3); Sodium 146 mmol/L (136-145)
--- NOTE | 2018-09-23 08:46 | RAD ---
CHEST 1 VIEW: Date: 09/23/18 INDICATION: Hypertension without chest pain or shortness of breath. COMPARISON: Prior chest radiograph of part of an acute abdominal series dated 11/18/14. IMPRESSION: Stable chronic lung changes. No consolidation, pleural effusion, pneumothorax, or acute osseous abnor mality. POS: BH
== END 2018-09-23 04:22 | disposition home or self-care (01) ==
LOC: ERS 00:55
DX: I10 Essential (primary) hypertension (principal); Z87.891 Personal history of nicotine dependence
CPT/HCPCS: 36415; 71045; 80053; 83880; 84484; 85025; 93005

== ENCOUNTER 2020-07-17 08:39 | Outpatient (CLI) | payer MEDICARE, OTHER ==
--- NOTE | 2020-07-17 09:16 | MMO ---
Bilateral MAMMO Bilat Screen [facility]. CLINICAL HISTORY: Patient is 70 years old and is seen for screening. The patient has no family history of breast cancer. The patient has no personal history of cancer. The patient has a history of left Excisional Biopsy in 1995 OR 1997 - benign. VIEWS: The views performed were: bilateral craniocaudal with tomosynthesis and bilateral mediolateral oblique with tomosynthesis. FILMS COMPARED: The present examination has been compared to prior imaging studies performed at [facility] on 08/20/2014, 10/13/2015, 12/07/2016 and 12/27/2017. This study has been interpreted with the assistance of computer-aided detection. MAMMOGRAM FINDINGS: There are scattered fibroglandular densities. There are stable benign appearing calcifications seen in both breasts. Nodularity is stable. There are no suspicious masses, suspicious calcifications, or new areas of architectural distortion. IMPRESSION: THERE IS NO MAMMOGRAPHIC EVIDENCE OF MALIGNANCY. A ROUTINE FOLLOW-UP MAMMOGRAM IN 1 YEAR IS RECOMMENDED. THE RESULTS OF THIS EXAM WERE SENT TO THE PATIENT. ACR BI-RADS Category 2 - Benign finding MAMMOGRAPHY NOTE: 1. A negative mammogram report should not delay a biopsy if a dominant of clinically suspicious mass is present. 2. Approximately 10% to 15% of breast cancers are not detected by mammography. 3. Adenosis and dense breasts may obscure an underlying neoplasm. Reported by: CAILIN KELLEY MD Electonically Signed: [id number]
== END 2020-07-17 08:40 | disposition home or self-care (01) ==
LOC: BICMAMMO 08:39
PROVIDERS: ATTEND Physician Assistant
DX: Z12.31 Encounter for screening mammogram for malignant neoplasm of breast (principal); Z91.89 Other specified personal risk factors, not elsewhere classified
CPT/HCPCS: 77063; 77067

== ENCOUNTER 2020-09-24 08:47 | Outpatient (CLI) | payer MEDICARE, OTHER ==
[2020-09-24] MEDS ORDERED: Iopamidol 370 76% 100 ML VIAL ONE (14:47)
== END 2020-09-24 08:48 | disposition home or self-care (01) ==
LOC: CT 08:47
PROVIDERS: ATTEND Physician Assistant Medical
DX: K50.90 Crohn's disease, unspecified, without complications (principal); R10.9 Unspecified abdominal pain; R11.0 Nausea; N28.9 Disorder of kidney and ureter, unspecified; K76.9 Liver disease, unspecified; M43.17 Spondylolisthesis, lumbosacral region; K43.9 Ventral hernia without obstruction or gangrene
CPT/HCPCS: 74178; 82565; Q9967

== ENCOUNTER 2020-12-02 08:24 | Outpatient (CLI) | payer MEDICARE, OTHER | END 2020-12-02 08:25 | disposition home or self-care (01) | LOC: BICMAMMO 08:24 | PROVIDERS: ATTEND Physician Assistant | DX: Z13.820 Encounter for screening for osteoporosis (principal); N64.4 Mastodynia | CPT/HCPCS: 76642; 77065; 77080; G0279 ==

== ENCOUNTER 2021-04-26 10:17 | Inpatient (IN) | payer MEDICARE, OTHER ==
[~2021-04-26 10:17] MED LIST changes: -Iopamidol 370 76% 100 ML VIAL ONE; +Iopamidol-370 76% 500 ML 1 ML ONE
[2021-04-26] MEDS ORDERED: Ondansetron PF 4 MG/2 ML Vial ONE (11:09)
[2021-04-26] MEDS ORDERED: Morphine 4 MG/ML VIAL ONE ×2 (11:09→14:46)
[2021-04-26 12:06] LABS: Bacteria/HPF 2+ HPF (None Seen); Bilirubin Negative (Negative); Blood, Urine Negative (Negative); Clarity Clear (Clear); Glucose, Urine (Dipstick) Normal (Negative); Ketone, Urine Negative (Negative); Leukocyte 25 Leu/uL (Negative); Nitrite Negative (Negative); Protein, Urine (Dipstick) Negative (Neg-Trace); RBC/HPF 0-3 HPF (0-3); Urobilinogen Normal mg/dL (Less than 2); WBC/HPF 0-3 HPF (0-3); pH, Urine 6.5 (5.0-9.0)
[2021-04-26 12:14] LABS: #Basophils 0.1 thou/uL (0.0-0.2); #Eosinphils 0.3 thou/uL (0.0-0.7); #Lymphocytes 1.1 thou/uL (1.20-3.40); #Monocytes 0.9 thou/uL (0.11-0.59); #Neutrophils 5.4 thou/uL (1.40-6.50); %Basophils 0.7 % (0.0-1.0); %Eosinophils 3.6 % (0.0-10.0); %Lymphocytes 14.3 % (21.0-51.0); %Monocytes 11.1 % (0.0-10.0); %Neutrophils 70.3 % (42.0-75.0); Hemoglobin 11.8 g/dL (12.0-16.0); Mean Corpuscular HGB CONC 33.9 g/dL (32.0-36.0); Mean Corpuscular Hemoglobin 30.3 pg (27.0-31.0); Mean Corpuscular Volume 89.4 fL (78.0-98.0); Mean Platelet Volume 7.5 fL (7.4-10.4); Platelet Count 371 thou/uL (130-400); RBC Distribution Width 13.3 % (11.5-14.5); Red Blood Cell (RBC) Count 3.91 mill/uL (4.20-5.40); White Blood Cell (WBC) Count 7.7 thou/uL (4.8-10.8)
[2021-04-26 12:36] LABS: ALT (SGPT) 14 U/L (8-55); AST (SGOT) 16 U/L (5-34); Albumin 3.4 g/dL (3.4-4.8); Alkaline Phosphatase 101 U/L (40-110); Anion Gap 14 mmol/L (10-20); BUN (Urea Nitrogen) 14 mg/dL (9.8-20.1); Bilirubin, Total 0.5 mg/dL (0.2-1.2); Calc. Creatinine Clearance 0 mL/min (70-130); Carbon Dioxide 26 mmol/L (23-31); Chloride 106 mmol/L (98-107); Globulin 3.5 g/dL (2.4-3.5); Glucose 88 mg/dL (83-110); Lipase 38 U/L (8-78); Potassium 4.2 mmol/L (3.5-5.1); Protein, Total 6.9 g/dL (5.8-8.1); Sodium 142 mmol/L (136-145)
[2021-04-26 16:49] VITALS: BMI 28.3
[2021-04-26] MEDS ORDERED: Ondansetron ODT 4 MG TAB SL PRN (17:30)
[2021-04-26] MEDS ORDERED: Ondansetron PF 4 MG/2 ML Vial IVP PRN (17:30)
[2021-04-26] MEDS ORDERED: Acetaminophen 325 MG TAB PO PRN (17:30)
[2021-04-26] MEDS: Sodium Chloride 0.9% 1,000 ML IV SCH (17:42)
[2021-04-26] MEDS ORDERED: Piperacillin/Tazobactam 3.375 GM in Sodium Chloride 0.9% 100 ML IVPB SCH ×2 (17:45→18:15)
[2021-04-26] MEDS ORDERED: FLU VACC QS2021-22(65YR UP)/PF 240 MCG/0.7 ML SYRINGE IM ONE (17:45)
[2021-04-26] MEDS: Morphine 4 MG/ML VIAL SLOW IVP PRN ×2 (18:30→23:06)
[2021-04-26] MEDS: Piperacillin/Tazobactam 3.375 GM in Sodium Chloride 0.9% 100 ML IVPB SCH (23:06)
[2021-04-27 00:44] LABS: SARS-CoV-2 PCR by NAA Not Detected (NotDetected)
[2021-04-27] MEDS: Sodium Chloride 0.9% 1,000 ML IV SCH ×2 (01:31→19:14)
[2021-04-27] MEDS: Morphine 4 MG/ML VIAL SLOW IVP PRN ×3 (04:26→19:11)
[2021-04-27] MEDS: Piperacillin/Tazobactam 3.375 GM in Sodium Chloride 0.9% 100 ML IVPB SCH ×2 (06:01→14:24)
[2021-04-27] MEDS: Flecainide 50 MG TAB PO SCH (08:22)
[2021-04-27] MEDS: Nortriptyline HCl 25 MG CAP PO SCH (08:22)
[2021-04-27] MEDS: Pantoprazole 40 MG VIAL IVP SCH (08:22)
[2021-04-27 08:23] LABS: #Eosinphils 0.4 thou/uL (0.0-0.7); #Monocytes 0.7 thou/uL (0.11-0.59); #Neutrophils 3.5 thou/uL (1.40-6.50); %Basophils 0.5 % (0.0-1.0); %Eosinophils 7.7 % (0.0-10.0); %Lymphocytes 17.2 % (21.0-51.0); %Monocytes 11.8 % (0.0-10.0); %Neutrophils 62.8 % (42.0-75.0); Hemoglobin 10.8 g/dL (12.0-16.0); Mean Corpuscular HGB CONC 33.1 g/dL (32.0-36.0); Mean Corpuscular Hemoglobin 29.6 pg (27.0-31.0); Mean Corpuscular Volume 89.3 fL (78.0-98.0); Platelet Count 391 thou/uL (130-400); RBC Distribution Width 13.3 % (11.5-14.5); Red Blood Cell (RBC) Count 3.65 mill/uL (4.20-5.40); White Blood Cell (WBC) Count 5.6 thou/uL (4.8-10.8)
[2021-04-27 08:42] LABS: Anion Gap 9 mmol/L (10-20); BUN (Urea Nitrogen) 9 mg/dL (9.8-20.1); Calc. Creatinine Clearance 96 mL/min (70-130); Carbon Dioxide 28 mmol/L (23-31); Chloride 108 mmol/L (98-107); Glucose 88 mg/dL (83-110); Magnesium 2.1 mg/dL (1.6-2.6); Sodium 141 mmol/L (136-145)
[2021-04-27] MEDS ORDERED: Sodium Chloride 0.9% 1,000 ML IV SCH (17:00)
[2021-04-27] MEDS ORDERED: Magnesium Citrate 300 ML BOT PO SCH (19:00)
[2021-04-27] MEDS: methylPREDNISolone Sod Succ 40 MG VIAL IVP SCH (21:20)
[2021-04-28] MEDS: Morphine 4 MG/ML VIAL SLOW IVP PRN ×4 (00:05→20:48)
[2021-04-28] MEDS: Piperacillin/Tazobactam 3.375 GM in Sodium Chloride 0.9% 100 ML IVPB SCH ×4 (00:06→23:18)
[2021-04-28] MEDS: Sodium Chloride 0.9% 1,000 ML IV SCH ×3 (03:46→14:22)
[2021-04-28] MEDS: methylPREDNISolone Sod Succ 40 MG VIAL IVP SCH ×3 (06:07→21:10)
[2021-04-28] MEDS: Polyethylene Glycol 3350 17 GM Packet PO SCH (08:25)
[2021-04-28] MEDS: Calcium Polycarbophil 625 MG TAB PO SCH (08:25)
[2021-04-28] MEDS: Flecainide 50 MG TAB PO SCH (08:26)
[2021-04-28] MEDS: Nortriptyline HCl 25 MG CAP PO SCH (08:26)
[2021-04-28] MEDS: Pantoprazole 40 MG VIAL IVP SCH (09:42)
[2021-04-29] MEDS: Sodium Chloride 0.9% 1,000 ML IV SCH ×3 (03:41→21:25)
[2021-04-29] MEDS: methylPREDNISolone Sod Succ 40 MG VIAL IVP SCH ×3 (06:05→21:38)
[2021-04-29 06:35] LABS: #Lymphocytes 0.7 thou/uL (1.20-3.40); #Monocytes 0.3 thou/uL (0.11-0.59); #Neutrophils 10.6 thou/uL (1.40-6.50); %Basophils 0.1 % (0.0-1.0); %Eosinophils 0.1 % (0.0-10.0); %Lymphocytes 5.7 % (21.0-51.0); %Monocytes 2.9 % (0.0-10.0); %Neutrophils 91.2 % (42.0-75.0); Hemoglobin 10.4 g/dL (12.0-16.0); Mean Corpuscular HGB CONC 33.8 g/dL (32.0-36.0); Mean Platelet Volume 7.5 fL (7.4-10.4); Platelet Count 387 thou/uL (130-400); RBC Distribution Width 13.3 % (11.5-14.5); Red Blood Cell (RBC) Count 3.47 mill/uL (4.20-5.40); White Blood Cell (WBC) Count 11.7 thou/uL (4.8-10.8)
[2021-04-29 06:58] LABS: Anion Gap 11 mmol/L (10-20); BUN (Urea Nitrogen) 8 mg/dL (9.8-20.1); Calc. Creatinine Clearance 106 mL/min (70-130); Calcium 8.3 mg/dL (7.8-10.44); Carbon Dioxide 23 mmol/L (23-31); Chloride 112 mmol/L (98-107); Glucose 140 mg/dL (83-110); Potassium 4.2 mmol/L (3.5-5.1); Sodium 142 mmol/L (136-145)
[2021-04-29] MEDS: Piperacillin/Tazobactam 3.375 GM in Sodium Chloride 0.9% 100 ML IVPB SCH ×2 (08:24→15:29)
[2021-04-29] MEDS: Flecainide 50 MG TAB PO SCH (08:25)
[2021-04-29] MEDS: Calcium Polycarbophil 625 MG TAB PO SCH (08:25)
[2021-04-29] MEDS: Pantoprazole 40 MG VIAL IVP SCH (08:26)
[2021-04-29] MEDS: Nortriptyline HCl 25 MG CAP PO SCH (08:52)
[2021-04-29] MEDS: Polyethylene Glycol 3350 17 GM Packet PO SCH (08:54)
[2021-04-29] MEDS: traMADol HCl 50 MG TAB PO PRN (10:42)
[2021-04-29] MEDS: Loratadine 10 MG TAB PO PRN (10:42)
[2021-04-29] MEDS: Morphine 4 MG/ML VIAL SLOW IVP PRN (13:25)
[2021-04-30] MEDS: Sodium Chloride 0.9% 1,000 ML IV SCH ×3 (05:31→22:23)
[2021-04-30] MEDS: methylPREDNISolone Sod Succ 40 MG VIAL IVP SCH ×3 (05:38→22:22)
[2021-04-30 07:05] LABS: Anion Gap 13 mmol/L (10-20); BUN (Urea Nitrogen) 11 mg/dL (9.8-20.1); Calc. Creatinine Clearance 103 mL/min (70-130); Calcium 8.8 mg/dL (7.8-10.44); Carbon Dioxide 23 mmol/L (23-31); Cardiac Risk 3.1 (Less than 4.5); Chloride 110 mmol/L (98-107); Cholesterol 149 mg/dl (< 200 Desired); Glucose 124 mg/dL (83-110); HDL Cholesterol 48 mg/dL (>60 Neg Risk); LDL Cholesterol, Calculated 88 mg/dL; Sodium 142 mmol/L (136-145); Triglycerides 63 mg/dL (Less than 150)
[2021-04-30 07:22] LABS: #Lymphocytes 0.7 thou/uL (1.20-3.40); #Monocytes 0.5 thou/uL (0.11-0.59); #Neutrophils 11.6 thou/uL (1.40-6.50); %Basophils 0.1 % (0.0-1.0); %Eosinophils 0.2 % (0.0-10.0); %Lymphocytes 5.5 % (21.0-51.0); %Monocytes 3.6 % (0.0-10.0); %Neutrophils 90.6 % (42.0-75.0); Hemoglobin 11.1 g/dL (12.0-16.0); Mean Corpuscular HGB CONC 32.6 g/dL (32.0-36.0); Mean Corpuscular Hemoglobin 29.5 pg (27.0-31.0); Mean Corpuscular Volume 90.4 fL (78.0-98.0); Mean Platelet Volume 7.4 fL (7.4-10.4); Platelet Count 435 thou/uL (130-400); RBC Distribution Width 13.7 % (11.5-14.5); Red Blood Cell (RBC) Count 3.77 mill/uL (4.20-5.40); White Blood Cell (WBC) Count 12.8 thou/uL (4.8-10.8)
[2021-04-30] MEDS: Flecainide 50 MG TAB PO SCH (08:18)
[2021-04-30] MEDS: azaTHIOprine 50 MG TAB PO SCH (08:18)
[2021-04-30] MEDS: Calcium Polycarbophil 625 MG TAB PO SCH (08:18)
[2021-04-30] MEDS: Pantoprazole 40 MG VIAL IVP SCH (08:19)
[2021-04-30] MEDS: Polyethylene Glycol 3350 17 GM Packet PO SCH (08:20)
[2021-04-30] MEDS: traMADol HCl 50 MG TAB PO PRN ×2 (08:20→14:13)
[2021-04-30] MEDS: Loratadine 10 MG TAB PO PRN (09:26)
[2021-05-01] MEDS: traMADol HCl 50 MG TAB PO PRN (00:05)
[2021-05-01] MEDS: Sodium Chloride 0.9% 1,000 ML IV SCH ×2 (06:11→12:22)
[2021-05-01] MEDS: methylPREDNISolone Sod Succ 40 MG VIAL IVP SCH ×2 (06:11→14:26)
[2021-05-01] MEDS: azaTHIOprine 50 MG TAB PO SCH (08:34)
[2021-05-01] MEDS: Pantoprazole 40 MG VIAL IVP SCH (08:34)
[2021-05-01] MEDS: Calcium Polycarbophil 625 MG TAB PO SCH (08:34)
[2021-05-01] MEDS: Flecainide 50 MG TAB PO SCH (08:34)
[2021-05-01] MEDS: Polyethylene Glycol 3350 17 GM Packet PO SCH (08:34)
[2021-05-01] MEDS: Loratadine 10 MG TAB PO PRN (08:35)
[2021-05-01] MEDS ORDERED: SODIUM CHLORIDE 0.9% IVPB SCH (11:30)
[2021-05-01] MEDS ORDERED: INFLIXIMAB ABDA IVPB SCH (11:30)
[2021-05-01] MEDS ORDERED: Acetaminophen 500 MG TAB PO SCH (12:15)
[2021-05-01] MEDS ORDERED: diphenhydrAMINE 50 MG/ML VIAL IVP SCH (12:15)
[2021-05-01 16:08] VITALS: BP 148/82; TEMP 98
== END 2021-05-01 16:06 | disposition home or self-care (01) | DRG 372 ==
LOC: ERS 10:17 → T4-A 14:56 → OBSVTOIN 04-27 16:40
PROVIDERS: ADMIT Family Medicine; ATTEND Internal Medicine
DX: K65.8 Other peritonitis (principal); K50.10 Crohn's disease of large intestine without complications; Z20.822 Contact with and (suspected) exposure to COVID-19; R00.2 Palpitations; I10 Essential (primary) hypertension; G25.0 Essential tremor; Z88.5 Allergy status to narcotic agent; Z79.899 Other long term (current) drug therapy; Z79.82 Long term (current) use of aspirin; Z90.49 Acquired absence of other specified parts of digestive tract; Z82.0 Family history of epilepsy and other diseases of the nervous system; Z87.891 Personal history of nicotine dependence
CPT/HCPCS: 36415; 74177; 80048; 80053; 80061; 81003; 81015; 83690; 83735; 84484; 85025; 85652; 86140; 93005; 96366; 96374; 96375; 96376; C9113; G0378; J1200; J2270; J2405; J2543; J2920; J3490; J7050; J7500; Q5104; Q9967; U0003; U0005

== ENCOUNTER 2022-07-11 22:30 | Observation (INO) | payer MEDICARE, OTHER ==
[2022-07-11 23:39] LABS: #Eosinphils 0.4 thou/uL (0.0-0.7); #Lymphocytes 0.9 thou/uL (1.20-3.40); #Monocytes 0.7 thou/uL (0.11-0.59); #Neutrophils 3.8 thou/uL (1.40-6.50); %Basophils 0.8 % (0.0-1.0); %Eosinophils 6.8 % (0.0-10.0); %Lymphocytes 15.3 % (21.0-51.0); %Monocytes 11.9 % (0.0-10.0); %Neutrophils 65.3 % (42.0-75.0); Hemoglobin 12.2 g/dL (12.0-16.0); Mean Corpuscular HGB CONC 33.3 g/dL (32.0-36.0); Mean Corpuscular Hemoglobin 31.2 pg (27.0-31.0); Mean Corpuscular Volume 93.7 fl (78.0-98.0); Mean Platelet Volume 8.1 fL (7.4-10.4); Platelet Count 288 10x3/uL (130-400); RBC Distribution Width 12.6 % (11.5-14.5); Red Blood Cell (RBC) Count 3.91 mill/uL (4.20-5.40); White Blood Cell (WBC) Count 5.8 10x3/uL (4.8-10.8)
[2022-07-11 23:51] LABS: ALT (SGPT) 13 U/L (8-55); AST (SGOT) 18 U/L (5-34); Albumin 4.1 g/dL (3.4-4.8); Alkaline Phosphatase 117 U/L (40-110); Anion Gap 13 mmol/L (10-20); BUN (Urea Nitrogen) 19 mg/dL (9.8-20.1); Bilirubin, Total 0.4 mg/dL (0.2-1.2); Calc. Creatinine Clearance 0 mL/min (70-130); Calcium 9.2 mg/dL (7.8-10.44); Carbon Dioxide 22 mmol/L (23-31); Chloride 111 mmol/L (98-107); Estimated GFR 85; Globulin 2.7 g/dL (2.4-3.5); Glucose 111 mg/dL (83-110); Protein, Total 6.8 g/dL (5.8-8.1); Sodium 142 mmol/L (136-145)
[2022-07-12 01:18] LABS: Troponin I 0.014 ng/mL (< 0.028)
[2022-07-12] MEDS ORDERED: Ondansetron PF 4 MG/2 ML Vial IVP PRN (02:42)
[2022-07-12] MEDS ORDERED: Acetaminophen 325 MG TAB PO PRN (02:42)
[2022-07-12] MEDS ORDERED: Ondansetron ODT 4 MG TAB PO PRN (02:42)
[2022-07-12 04:58] LABS: Magnesium 2.1 mg/dL (1.6-2.6)
[2022-07-12 05:02] LABS: Troponin I 0.015 ng/mL (< 0.028)
[2022-07-12 05:07] LABS: Cardiac Risk 2.9 (Less than 4.5)
[2022-07-12 05:26] LABS: Troponin I 0.021 ng/mL (< 0.028)
[2022-07-12 09:00] LABS: SARS-CoV-2 NAA Rapid Test Not Detected (NotDetected)
[2022-07-12] MEDS ORDERED: Amlodipine 5 MG TAB PO SCH (09:00)
[2022-07-12] MEDS ORDERED: Flecainide 50 MG TAB PO SCH (09:00)
[2022-07-12] MEDS ORDERED: Aspirin Chewable 81 MG TAB PO SCH (09:00)
[2022-07-12] MEDS ORDERED: Amlodipine 5 MG TAB ONE ×2 (09:42→11:54)
[2022-07-12] MEDS ORDERED: Aspirin Chewable 81 MG TAB ONE ×2 (09:42→11:54)
[2022-07-12] MEDS ORDERED: ADENOSINE 60 MG/20 ML VIAL ONE (10:06)
[2022-07-12 16:40] VITALS: BMI 28.5
[2022-07-12 16:41] VITALS: BP 172/73
== END 2022-07-12 17:47 | disposition home or self-care (01) ==
LOC: ERS 22:30 → ERHOLD 07-12 02:04 → 2SW 07-12 13:24
PROVIDERS: ADMIT Internal Medicine; ATTEND Internal Medicine
DX: R07.89 Other chest pain (principal); I48.0 Paroxysmal atrial fibrillation; I10 Essential (primary) hypertension; K50.90 Crohn's disease, unspecified, without complications; G25.0 Essential tremor; M19.90 Unspecified osteoarthritis, unspecified site; G89.29 Other chronic pain; R10.9 Unspecified abdominal pain; I08.8 Other rheumatic multiple valve diseases; Z87.891 Personal history of nicotine dependence; Z79.82 Long term (current) use of aspirin; Z79.899 Other long term (current) drug therapy; Z88.5 Allergy status to narcotic agent; Z90.49 Acquired absence of other specified parts of digestive tract; Z98.890 Other specified postprocedural states; Z20.822 Contact with and (suspected) exposure to COVID-19
CPT/HCPCS: 71045; 78452; 80053; 80061; 83735; 84100; 84443; 84484 ×3; 85025; 93005 ×2; 93017; 93306; A9500; G0378 ×2; U0002; 36415; J0153

== ENCOUNTER 2022-10-14 12:10 | Emergency (ER) | payer MEDICARE, OTHER ==
[~2022-10-14 12:10] MED LIST changes: -Iopamidol-370 76% 500 ML 1 ML ONE; +Iopamidol-370 76% 500 ML MDV (1 ML CHARGE) ONE
[2022-10-14 14:26] LABS: #Eosinphils 0.2 thou/uL (0.0-0.7); #Monocytes 0.9 thou/uL (0.11-0.59); #Neutrophils 3.8 thou/uL (1.40-6.50); %Basophils 0.7 % (0.0-1.0); %Eosinophils 4.1 % (0.0-10.0); %Lymphocytes 17.1 % (21.0-51.0); %Monocytes 14.5 % (0.0-10.0); %Neutrophils 63.7 % (42.0-75.0); Hemoglobin 10.8 g/dL (12.0-16.0); Mean Corpuscular HGB CONC 32.7 g/dL (32.0-36.0); Mean Corpuscular Hemoglobin 30.8 pg (27.0-31.0); Mean Platelet Volume 7.4 fL (7.4-10.4); Platelet Count 348 10x3/uL (130-400); RBC Distribution Width 15.2 % (11.5-14.5); Red Blood Cell (RBC) Count 3.52 mill/uL (4.20-5.40)
[2022-10-14 14:46] LABS: ALT (SGPT) 10 U/L (8-55); AST (SGOT) 20 U/L (5-34); Albumin 3.3 g/dL (3.4-4.8); Alkaline Phosphatase 70 U/L (40-110); Anion Gap 12 mmol/L (10-20); BUN (Urea Nitrogen) 12 mg/dL (9.8-20.1); Bilirubin, Total 0.3 mg/dL (0.2-1.2); Calc. Creatinine Clearance 0 mL/min (70-130); Carbon Dioxide 25 mmol/L (23-31); Chloride 105 mmol/L (98-107); Estimated GFR 72; Globulin 2.8 g/dL (2.4-3.5); Glucose 92 mg/dL (83-110); Lipase 20 U/L (8-78); Potassium 3.6 mmol/L (3.5-5.1); Protein, Total 6.1 g/dL (5.8-8.1); Sodium 138 mmol/L (136-145)
[2022-10-14] MEDS ORDERED: Ketorolac Tromethamine 30 MG/ML VIAL ONE (14:58)
[2022-10-14 15:40] LABS: Bilirubin Negative (Negative); Blood, Urine Negative (Negative); Clarity Clear (Clear); Glucose, Urine (Dipstick) Normal (Negative); Ketone, Urine Negative (Negative); Leukocyte Negative Leu/uL (Negative); Nitrite Negative (Negative); Protein, Urine (Dipstick) Negative (Neg-Trace); Specific Gravity, Urine 1.013 (1.002-1.036); Urobilinogen Normal mg/dL (Less than 2)
== END 2022-10-14 16:40 | disposition home or self-care (01) ==
LOC: ERS 12:10
DX: K52.9 Noninfective gastroenteritis and colitis, unspecified (principal); I10 Essential (primary) hypertension; Z87.891 Personal history of nicotine dependence; Z79.899 Other long term (current) drug therapy; Z79.82 Long term (current) use of aspirin
CPT/HCPCS: 36415; 74177; 80053; 81003; 83690; 85025; 86140; 96361; 96374; J1885

== ENCOUNTER 2024-06-28 10:57 | Outpatient (CLI) | payer MEDICARE, OTHER | END 2024-06-28 10:58 | disposition home or self-care (01) | LOC: BICMAMMO 10:57 | PROVIDERS: ATTEND Physician Assistant | DX: Z12.31 Encounter for screening mammogram for malignant neoplasm of breast (principal); Z91.89 Other specified personal risk factors, not elsewhere classified | CPT/HCPCS: 77063; 77067 ==

== ENCOUNTER 2025-03-04 13:40 | Outpatient (CLI) | payer MEDICARE, OTHER ==
[2025-03-04 14:30] LABS: Hematocrit 35.7 % (36.0-47.0); Hemoglobin 11.1 g/dL (12.0-16.0); Mean Corpuscular Hemoglobin 28.9 pg (27.0-31.0); Mean Corpuscular Volume 93.0 fL (78.0-98.0); Platelet Count 298 10x3/uL (130-400); Red Blood Cell (RBC) Count 3.84 mill/uL (4.20-5.40); White Blood Cell (WBC) Count 4.44 10x3/uL (4.8-10.8)
[2025-03-04 14:44] LABS: ALT (SGPT) 14 U/L (Less than 34); AST (SGOT) 37 U/L (11-34); Albumin 3.5 g/dL (3.1-4.5); Alkaline Phosphatase 125 U/L (40-110); Anion Gap 10 mmol/L (10-20); BUN (Urea Nitrogen) 18 mg/dL (9.8-20.1); Bilirubin, Total 0.6 mg/dL (0.3-1.2); Calc. Creatinine Clearance 0 mL/min (70-130); Calcium 8.9 mg/dL (7.8-10.44); Carbon Dioxide 27 mmol/L (23-31); Chloride 108 mmol/L (98-107); Globulin 2.9 g/dL (2.4-3.5); Glucose 94 mg/dL (83-110); Potassium 3.9 mmol/L (3.5-5.1); Sodium 141 mmol/L (136-145)
[2025-03-04 15:49] LABS: Giant Platelets 1.0 % (0-5); Platelet Adequacy Comment Platelets Normal; Polychromasia SLIGHT = 2-3 cells HPF (0-2)
== END 2025-03-04 13:41 | disposition home or self-care (01) ==
LOC: LABBT 13:40
PROVIDERS: ATTEND Surgery
DX: Z01.818 Encounter for other preprocedural examination (principal); K43.2 Incisional hernia without obstruction or gangrene
CPT/HCPCS: 80053; 85025; 93005; 93010

== ENCOUNTER 2025-03-06 06:14 | Day surgery (SDC) | payer MEDICARE, OTHER ==
[2025-03-04 13:49] VITALS: BMI 27.2
[2025-03-06] MEDS ORDERED: Bupivacaine 0.25% HCL 30 ML VIAL ONE (06:46)
[2025-03-06] MEDS ORDERED: Ondansetron PF 4 MG/2 ML Vial ONE (06:51)
[2025-03-06] MEDS ORDERED: Rocuronium Bromide 10 MG/ML (10ML VIAL) ONE (06:51)
[2025-03-06] MEDS ORDERED: PROPOFOL 20 ML ONE ×2 (06:52→07:46)
[2025-03-06] MEDS ORDERED: fentaNYL PF 100 MCG/2 ML SYRINGE ONE ×2 (06:52→07:46)
[2025-03-06] MEDS ORDERED: CEFAZOLIN 2 GM VIAL ONE (06:58)
[2025-03-06] MEDS ORDERED: SUGAMMADEX SODIUM 200 MG/2 ML VIAL ONE ×2 (08:09→08:12)
[2025-03-06] MEDS ORDERED: HYDROcodone/Acetaminophen 5/325 mg Tablet ONE (09:32)
== END 2025-03-06 10:20 | disposition home or self-care (01) ==
LOC: SDC 06:14
PROVIDERS: ATTEND Surgery
PROC: 0WQF4ZZ Repair Abdominal Wall, Percutaneous Endoscopic Approach (ICD-10-PCS; principal; 2025-03-06)
DX: K43.2 Incisional hernia without obstruction or gangrene (principal); K50.90 Crohn's disease, unspecified, without complications; Z87.891 Personal history of nicotine dependence; Z96.653 Presence of artificial knee joint, bilateral; Z88.5 Allergy status to narcotic agent; Z88.0 Allergy status to penicillin
CPT/HCPCS: 49593; J0169; J0665; J1100; J2250; J2405; J2704; J3010; S2900